=== PATIENT | male | born 1995 | race Two or more races ===

== ENCOUNTER 2016-04-10 16:44 | Emergency (ER) | payer BC, OTHER ==
[~2016-04-10 16:44] MED LIST: CLARITIN10 MG PO; ZITHROMAX PO
== END 2016-04-10 17:05 | disposition home or self-care (01) ==
LOC: SED 16:44
DX: H10.32 Unspecified acute conjunctivitis, left eye (principal); Z88.1 Allergy status to other antibiotic agents; Z91.018 Allergy to other foods; Z79.899 Other long term (current) drug therapy
CPT/HCPCS: 99283

== ENCOUNTER 2016-04-12 19:42 | Emergency (ER) | payer BC, OTHER ==
[2016-04-12 19:19] LABS: INFLUENZA A NEG (NEG); INFLUENZA B NEG (NEG)
== END 2016-04-12 20:10 | disposition home or self-care (01) ==
LOC: SED 19:42
PROVIDERS: Emergency Medicine
DX: J06.9 Acute upper respiratory infection, unspecified (principal); H10.9 Unspecified conjunctivitis; L70.9 Acne, unspecified; Z88.0 Allergy status to penicillin; Z91.018 Allergy to other foods
CPT/HCPCS: 87804; 99283